=== PATIENT | female | born 1940 | race Caucasian/White ===

== ENCOUNTER 2017-01-03 08:02 | Outpatient (CLI) | payer MEDICARE | END 2017-01-03 08:03 | disposition home or self-care (01) | DX: Z13.820 Encounter for screening for osteoporosis (principal); M85.88 Other specified disorders of bone density and structure, other site; N95.8 Other specified menopausal and perimenopausal disorders ==

== ENCOUNTER 2017-04-17 10:43 | Outpatient (CLI) | payer MEDICARE ==
--- NOTE | 2017-04-17 14:24 | CT Report ---
LOW-DOSE CT CHEST FOR LUNG CANCER SCREENIN04/17/2017 CLINICAL INDICATION: A 76-year-old, 49-ecoz-ipry history of smoking, current smoker. TECHNIQUE: Axial CT images of the chest were obtained without intravenous contrast, using low-dose s creening technique. In accordance with CT protocol optimization, one or more of the following dose reduction techniques w ere utilized for this exam: automated exposure control, adjustment of mA and/or KV based on patient size, or use of iterative reconstructive technique. FINDINGS: The heart and great vessels demonstrate moderate atherosclerotic calcifications. Incident al note is made of an aberrant right subclavian artery, a normal variant. The lungs demonstrate emph ysema and bronchiectasis. There is a 4-mm nodule in the superolateral right middle lobe (axial image 154), and a 4-mm nodule in the right posterolateral lower lobe (axial image 244). No effusion or pn eumothorax is present. Osseous structures demonstrate degenerative changes. Limited evaluation of u pper abdominal structures is unremarkable. IMPRESSION: BENIGN FINDINGS. RECOMMENDATION: Continue annual screening with low-dose CT in 12 months. LUNG-RADS CATEGORY 2 - BENIGN APPEARANCE. JOB #: [id number] EXT JOB #:[id number]
== END 2017-04-17 10:44 | disposition home or self-care (01) ==
LOC: DI 10:43
PROVIDERS: ATTEND Internal Medicine
DX: Z12.2 Encounter for screening for malignant neoplasm of respiratory organs (principal); F17.210 Nicotine dependence, cigarettes, uncomplicated

== ENCOUNTER 2019-07-22 12:27 | Emergency (ER) | payer MEDICARE ==
[2019-07-22 13:19] LABS: BASOPHILS # (AUTO) 0.1 10^3/uL (0.0-0.1); BASOPHILS % (AUTO) 0.7 %; EOSINOPHILS # (AUTO) 0.1 10^3/uL (0.0-0.7); EOSINOPHILS % (AUTO) 0.7 %; HGB - HEMOGLOBIN 14.6 g/dL (12.0-16.0); LYMPHOCYTES % (AUTO) 14.6 %; MEAN CORPUSCULAR HEMOGLOBIN 34.3 pg (27.0-31.0); MEAN CORPUSCULAR VOLUME 100.9 fL (81.0-99.0); MEAN PLATELET VOLUME 8.2 fL (7.9-10.8); MONOCYTES # (AUTO) 0.9 10^3/uL (0.0-1.0); MONOCYTES % (AUTO) 6.6 %; NEUTROPHILS # (AUTO) 10.1 10^3/uL (1.5-6.6); NEUTROPHILS % (AUTO) 73.3 %; PLT - PLATELET COUNT 336 10^3/uL (130-450); RED BLOOD COUNT 4.26 10^6/uL (4.20-5.40); RED CELL DISTRIBUTION WIDTH 14.4 % (12.0-15.0); WHITE BLOOD COUNT 13.7 x10^3/uL (4.8-10.8)
[2019-07-22 13:39] LABS: ALBUMIN/GLOBULIN RATIO 0.9 (1.0-2.2); BILIRUBIN,TOTAL 0.7 mg/dL (0.2-1.0); CALCIUM 11.1 mg/dL (8.5-10.3); CREATININE 0.8 mg/dL (0.4-1.0); TOTAL PROTEIN 8.6 g/dL (6.7-8.2)
[2019-07-22 14:06] LABS: DIFFERENTIAL COMMENT MANUAL=AUTO DIFF; PLATELET ESTIMATE, MANUAL NORMAL (130-450,000) (NORMAL); PLATELET MORPHOLOGY NORMAL APPEARANCE (NORMAL); RBC MORPHOLOGY (MULTIPLE) NORMAL APPEARANCE (NORMAL)
[2019-07-22 15:00] LABS: BILIRUBIN,URINE NEGATIVE (NEGATIVE); GLUCOSE, URINE (UA) NEGATIVE (NEGATIVE); KETONES,URINE (UA) NEGATIVE (NEGATIVE); LEUKOCYTE ESTERASE, URINE TRACE (NEGATIVE); NITRITE,URINE NEGATIVE (NEGATIVE); OCCULT BLOOD,URINE NEGATIVE (NEGATIVE); PROTEIN,URINE NEGATIVE (NEGATIVE); UROBILINOGEN,URINE 0.2 (NORMAL) E.U./dL (NORMAL)
[2019-07-22 15:03] LABS: CLARITY,URINE HAZY (CLEAR)
[2019-07-22] MEDS ORDERED: IOVERSOL 320 100 ML VIAL IVP ONE ×2 (15:12→15:49)
[2019-07-22 15:27] LABS: BACTERIA,URINE Many /HPF (None Seen); RBC,URINE 0-5 /HPF (0-5); SQUAMOUS EPITHELIAL CELL,UR FEW Squamous (<= Few)
--- NOTE | 2019-07-22 16:17 | CT Report ---
Reason: RLQ pain tenderness x 1 week Procedure Date: 07/22/2019 Accession Number: [id number] / [id number] Procedure: CT - Abdomen/Pelvis W CPT Code: FULL RESULT: EXAM: CT ABDOMEN AND PELVIS EXAM DATE: 07/22/2019 03:46 PM. CLINICAL HISTORY: RLQ pain tenderness x 1 week. COMPARISONS: None. TECHNIQUE: Routine helical CT imaging was performed through the abdomen and pelvis. IV contrast: 100 cc Optiray 320. Enteric contrast: None. Reconstructions: Coronal and sagittal. In accordance with CT protocol optimization, one or more of the following dose reduction techniques were utilized for this exam: automated exposure control, adjustment of mA and/or KV based on patient size, or use of iterative reconstructive technique. FINDINGS: Lung Bases: Patchy peribronchovascular tree-in-bud opacities along with foci of consolidation seen at the bilateral pulmonary bases is worrisome for aspiration or pneumonia. No pleural effusions. Liver: Few tiny subcentimeter hypoattenuating liver lesions are indeterminate, possibly small cysts or hemangiomas. No enhancing liver masses. Hepatic and portal veins are patent. Gallbladder/Bile Ducts: Sludg is seen in the gallbladder. No definite radiopaque gallstones. No pericholecystic fluid or biliary dilation. Spleen: Scattered small splenic calcifications reflect sequelae of remote granulomatous infection. No splenic masses or splenomegaly. Pancreas: Normal. Adrenal Glands: Normal. Kidneys: Normal. No masses or hydronephrosis. Peritoneal Cavity/Bowel: Unremarkable stomach. Normal caliber small bowel loops without signs of wall thickening or hyperemia. No enlargement of peritoneal or retroperitoneal lymph nodes are seen. No intra-abdominal collections. Appendix is possibly visualized (3/56) and appears within normal limits. Gas and stool seen throughout the colon and the rectum. Pelvic Organs: Unremarkable urinary bladder for degree of distention. Prominent parametrial veins are noted. Uterus otherwise unremarkable. Ovaries not definitively seen by CT. No adnexal masses. No enlarged pelvic or inguinal lymph nodes. Vasculature: Severe atherosclerotic calcifications. No aneurysms. Bones: Osteopenia. Degenerative changes in the spine. No focal suspicious osseous lesions. Other: None. IMPRESSION: 1. Bibasilar pulmonary opacities are worrisome for aspiration or pneumonia. 2. No acute abnormality seen in the abdomen or pelvis. 3. Gas and stool seen throughout the colon and the rectum may reflect underlying constipation. 4. Prominent uterine and parametrial veins bilaterally could reflect underlying chronic pelvic congestion syndrome. RADIA
[2019-07-22] MEDS ORDERED: cefTRIAXone 1 GM in SODIUM CHLORIDE 0.9% MINIBAG 100 ML IV STA (16:19)
[2019-07-22] MEDS ORDERED: POTASSIUM CHLORIDE 20 MEQ TABLET PO STA (16:29)
[2019-07-22] MEDS ORDERED: POTASSIUM CHLOR 20 MEQ/100 ML 20 MEQ/100 ML BAG IV ONE (16:29)
--- NOTE | 2019-07-22 16:30 | ED Physician Documentation ---
PD HPI ABD PAIN - Stated complaint Stated Complaint: SIDE PX - Chief complaint Chief Complaint: Abd Pain - History obtained from History obtained from: Patient, Family - History of Present Illness Timing - onset: How many weeks ago (1) Timing - duration: Weeks (1) Timing - details: Gradual onset, Intermittant Severity Comments: mild Quality: Aching Location: RLQ Radiation: Other (no radiation) Improved by: Other (currently is asymptomatic) Worsened by: Palpation Associated symptoms: Other (denies fever, nausea, vomiting, dysuria, hematuria, or urinary frequency, denies diarrha or constipation, denies chest pain or sob) Similar symptoms before: Has not had sx before Recently seen: Clinic (in clinic they sent her to the ED for CT scan to evaluate for appendicitis) - Treatment prior to arrival Treatment prior to arrival: none Review of Systems Ten Systems: 10 systems reviewed and negative Constitutional: reports: Reviewed and negative Cardiac: reports: Reviewed and negative Respiratory: reports: Reviewed and negative GI: reports: Abdominal Pain : reports: Reviewed and negative Skin: reports: Reviewed and negative Musculoskeletal: reports: Reviewed and negative Neurologic: reports: Reviewed and negative Immunocompromised: reports: Reviewed and negative PD PAST MEDICAL HISTORY - Past Medical History Past Medical History: Yes Cardiovascular: High cholesterol Respiratory: None Neuro: None Endocrine/Autoimmune: None GI: Hemorrhoids [employer] OPERATOR: None : Frequency HEENT: None Psych: None Musculoskeletal: None Derm: None - Past Surgical History Past Surgical History: Yes /[employer]TER OPERATOR: Tubal ligation - Present Medications Home Medications: Ambulatory Orders Medication Instructions Recorded Confirmed Ezetimibe [Zetia] 10 mg PO DAILY 04/21/16 04/21/16 Levothyroxine Sodium 137 mcg PO DAILY 04/21/16 04/21/16 Triamterene [Dyrenium] 50 mg PO DAILY 04/21/16 04/21/16 Cephalexin [Keflex] 500 mg PO Q6H #28 capsule 07/22/19 - Allergies Allergies/Adverse Reactions: Allergies Allergy/AdvReac Type Severity Reaction Status Date / Time alcohol Allergy Edema Verified 07/22/19 12:34 - Social History Does the pt smoke?: Yes Smoking Status: Current every day smoker Does the pt drink ETOH?: No Does the pt have substance abuse?: No - Immunizations Immunizations are current?: Yes - POLST Patient has POLST: No PD ED PE NORMAL - Vitals Vital signs reviewed: Yes - General General: Alert and oriented X 3, No acute distress, Well developed/nourished - HEENT HEENT: Atraumatic - Neck Neck: Supple, no meningeal sign - Cardiac Cardiac: RRR - Respiratory Respiratory: No respiratory distress - Abdomen Abdomen: Soft, Non distended, Other (mild suprapubic and RLQ tenderness, no guarding or rebound ) - Female Female : Deferred - Rectal Rectal: Deferred - Back Back: No CVA TTP - Derm Derm: Normal color, Warm and dry, No rash - Extremities Extremities: No deformity, No tenderness to palpate, Normal ROM s pain, No edema, No calf tenderness / cord - Neuro Neuro: Alert and oriented X 3 Eye Opening: Spontaneous Motor: Obeys Commands Verbal: Oriented GCS Score: 15 - Psych Psych: Normal mood, Normal affect Results - Vitals Vitals: Vital Signs - 24 hr 07/22/19 07/22/19 07/22/19 12:35 14:51 16:47 Temperature 36.4 C L Heart Rate 102 H 84 82 Respiratory 16 18 16 Rate Blood Pressure 120/52 L 118/70 120/70 O2 Saturation 97 95 98 07/22/19 17:55 Temperature Heart Rate 88 Respiratory 20 Rate Blood Pressure 117/71 O2 Saturation 97 Oxygen O2 Source Room air - Labs Labs: Laboratory Tests 07/22/19 07/22/19 07/22/19 13:05 13:05 14:55 WBC 13.7 H RBC 4.26 Hgb 14.6 Hct 43.0 MCV 100.9 H MCH 34.3 H MCHC 34.0 RDW 14.4 Plt Count 336 MPV 8.2 Neut # (Auto) 10.1 H Lymph # (Auto) 2.0 [place] # (Auto) 0.9 Eos # (Auto) 0.1 Baso # (Auto) 0.1 Absolute Nucleated RBC 0.00 Band Neuts % (Manual) Not Reportable Abnorm Lymph % (Manual) Not Reportable Nucleated RBC % 0.0 Neutrophils # (Manual) Not Reportable Lymphocytes # (Manual) Not Reportable Monocytes # (Manual) Not Reportable Eosinophils # (Manual) Not Reportable Basophils # (Manual) Not Reportable Differential Comment MANUAL=AUTO DIFF Manual Slide Review Indicated Platelet Estimate NORMAL (130-450,000) Platelet Morphology NORMAL APPEARANCE RBC Morph Micro Appear NORMAL APPEARANCE Sodium 136 Potassium 2.8 L Chloride 93 L Carbon Dioxide 30 Anion Gap 13.0 BUN 21 H Creatinine 0.8 Estimated GFR (MDRD) 70 L Glucose 148 H Calcium 11.1 H Total Bilirubin 0.7 AST 32 ALT 28 Alkaline Phosphatase 69 Total Protein 8.6 H Albumin 4.0 Globulin 4.6 H Albumin/Globulin Ratio 0.9 L Lipase 49 Urine Color YELLOW Urine Clarity HAZY Urine pH 7.0 Ur Specific Guy 1.010 Urine Protein NEGATIVE Urine Glucose (UA) NEGATIVE Urine Ketones NEGATIVE Urine Occult Blood NEGATIVE Urine Nitrite NEGATIVE Urine Bilirubin NEGATIVE Urine Urobilinogen 0.2 (NORMAL) Ur Leukocyte Esterase TRACE H Urine RBC 0-5 Urine WBC 11-25 H Ur Squamous Epith Cells FEW Squamous Urine Bacteria Many H Ur Microscopic Review INDICATED Urine Culture Comments INDICATED - Rads (name of study) CT abd/pelvis Radiology: Final report received, See rad report PD MEDICAL DECISION MAKING - ED course Complexity details: reviewed results, re-evaluated patient, considered differential, d/w patient, d/w family ED course: ddx- UTI, cystitis, appendicitis, malignancy, hernia 78 y/o F with a week of lower abdominal pain, currently denies pain but mild tenderness in RLQ and suprapubic area. She has a leukocytosis thus obtained CT to evaluate for appendicitis. Her UA is suggestive of a possible UTI. Her CT is negative for appendicitis but is suggestive of a possible PNA. I discussed this with the patient and her , she has no respiratory symptoms, chest pain or cough. I doubt this is a PNA. CT also read as pelvic congestion which is a possible etiology of her symptoms. She is hypokalemic and this was repleted in the ED with oral and IV potassium. I advised the pt and her to f/u wtih her PCP to check a repeat potassium and recheck her symptoms and in the meantime advised them to increase her oral potassium in her diet. Pt and were given return precautions in case of worsening pain or new concerning symptoms. Departure - Departure Disposition: 01 Home, Self Care Clinical Impression: Hypokalemia UTI (urinary tract infection) Qualifiers: Urinary tract infection type: acute cystitis Hematuria presence: without hematuria Qualified Code(s): N30.00 - Acute cystitis without hematuria Condition: Stable Record reviewed to determine appropriate education?: Yes Instructions: Hypokalemia Dc, ED UTI Cystitis Female Follow-Up: Lang Woodard MD [Primary Care Provider] - Within 1 week (recheck your symptoms ) Prescriptions: Cephalexin [Keflex] 500 mg PO Q6H #28 capsule Discharge Date/Time: 07/22/19 18:00
[2019-07-22 17:56] VITALS: BP 117/71
== END 2019-07-22 18:00 | disposition home or self-care (01) ==
LOC: ED 12:27
DX: N30.00 Acute cystitis without hematuria (principal); E87.6 Hypokalemia; F17.200 Nicotine dependence, unspecified, uncomplicated
CPT/HCPCS: 36415; 74177; 80053; 81001; 83690; 85025; 87086; 96365; 96368; 99284; A9270; Q9967; 81003

== ENCOUNTER 2021-02-24 10:43 | Outpatient (CLI) | payer MEDICARE, OTHER ==
--- NOTE | 2021-02-24 11:45 | XRAY Report ---
PROCEDURE: Chest 2 View X-Ray INDICATIONS: OTHER CIRCULATORY AND RESPIRATORY SYSTEM SYMPTOMS TECHNIQUE: 2 view(s) of the chest. COMPARISON: None. FINDINGS: Surgical changes and devices: None. Lungs and pleura: No pleural effusions or pneumothorax. Mild diffuse basilar predominant reticulonod ular pulmonary opacity.. Mediastinum: Mediastinal contours are normal. Heart size is normal. Bones and chest wall: No suspicious bony abnormalities. Soft tissues appear unremarkable. IMPRESSION: Mild atypical pneumonia. Reviewed by: Tanya Londono MD on 02/24/2021 11:44 AM PDT Approved by: Tanya Londono MD on 02/24/2021 11:44 AM PDT Station ID: [id number]
== END 2021-02-24 10:44 | disposition home or self-care (01) ==
LOC: DI 10:43
PROVIDERS: ATTEND Internal Medicine
DX: J18.9 Pneumonia, unspecified organism (principal)

== ENCOUNTER 2021-02-26 09:45 | Outpatient (CLI) | payer MEDICARE, OTHER ==
--- NOTE | 2021-02-26 10:55 | CT Report ---
PROCEDURE: CHEST WO INDICATIONS: ABN FINDING ON CXR TECHNIQUE: Noncontrast 5 mm thick sections acquired from the pulmonary apices to the posterior costophrenic angl es. 7 mm thick coronal and sagittal MIP reformats were then acquired. For radiation dose reduction, the following was used: automated exposure control, adjustment of mA and/or kV according to patient size. COMPARISON: Plain films dated 02/24/2021. CT examination dated 04/17/2017. FINDINGS: Image quality: Excellent. Lungs and pleura: No acute air space opacities. 3 mm diameter nodule within the right upper lobe ant eroinferiorly adjacent to the minor fissure (series 4 image 171) is unchanged. 3 mm nodule within the right middle lobe medial segment anteriorly (series 4 image 202) is present, new since the prior exa mination. There is a new, ovoid nodule within the left lower lobe anteriorly measuring roughly 5 mm ( series 4 image 199). No pleural effusions or pneumothorax. Central and peripheral airways are patent and normal in caliber. Mediastinum: Heart size is normal. There is mild calcification of the coronary vasculature. No peric ardial effusion. No mediastinal adenopathy by size criteria. Thoracic aorta and central pulmonary a rteries are normal in size. Right subclavian artery arises from the distal aortic arch and is retroe sophageal, as before. Esophagus is normal in caliber. No hiatal hernia. Bones and chest wall: No suspicious bony lesions. No vertebral body compression fractures. No axil esmer or supraclavicular adenopathy by size criteria. The thyroid is normal in size and there are no incidental findings. Abdomen: Visualized upper abdominal solid organs and bowel loops appear normal in the absence of con trast. IMPRESSION: 1. Bilateral pulmonary nodules as described above, including new 3 mm right middle lobe and new 5 mm left lower lobe pulmonary nodules. Lung RADS 3. Follow-up six-month low-dose CT is recommended for fu rther assessment. 2. Coronary artery disease. 3. Aberrant origin of right subclavian artery. This has been associated with dysphagia. CLINICAL RECOMMENDATION STATEMENTS: In patients <35 years with an ITN detected on CT, MRI, or extrathyroidal ultrasound, the Committee re commends further evaluation with dedicated thyroid ultrasound if the nodule is ?1 cm and has no suspi cious imaging features, and if the patient has normal life expectancy. In patients ?35 years with an ITN detected on CT, MRI, or extrathyroidal ultrasound, the Committee re commends further evaluation with dedicated thyroid ultrasound if the nodule is ?1.5 cm and has no margarito picious imaging features, and if the patient has normal life expectancy. (ACR, 2014) Reviewed by: Tanya Londono MD on 02/26/2021 10:53 AM PDT Approved by: Tanya Londono MD on 02/26/2021 10:53 AM PDT Station ID: [id number]
== END 2021-02-26 09:46 | disposition home or self-care (01) ==
LOC: DI 09:45
PROVIDERS: ATTEND Internal Medicine
DX: R91.8 Other nonspecific abnormal finding of lung field (principal); I25.10 Atherosclerotic heart disease of native coronary artery without angina pectoris; Q25.48 Anomalous origin of subclavian artery

== ENCOUNTER 2021-11-23 11:17 | Outpatient (CLI) | payer MEDICARE, OTHER ==
[2021-11-23] MEDS ORDERED: IOVERSOL 320 100 ML VIAL IVP ONE ×2 (11:28→15:38)
[2021-11-23 12:15] LABS: CALCIUM 9.2 mg/dL (8.5-10.3); CREATININE 0.8 mg/dL (0.4-1.0)
--- NOTE | 2021-11-23 18:03 | CT Report ---
PROCEDURE: CHEST W INDICATIONS: MULTIPLE LUNG NODULES CONTRAST: IV CONTRAST: Optiray 320 ml: 100 PO CONTRAST: *NO PO CONTRAST TECHNIQUE: After the administration of intravenous contrast, 1 mm axial images were acquired from the pulmonary apices through the posterior costophrenic angles. Axial 5 mm soft tissue kernel reconstructions were performed as well as 8 mm axial MIP and coronal and sagittal 5 mm reformations. For radiation dose reduction, the following was used: automated exposure control, adjustment of mA and/or kV according to patient size. COMPARISON: 02/26/2021 FINDINGS: Image quality: Excellent. Lungs and pleura: The previously described tiny pulmonary nodules are not definitely seen on the cur rent study. No new pulmonary nodules are seen. Centrilobular emphysematous changes are seen, which are more prominent at the lung apices than at the lung bases. No acute air space opacities. No pleural effusions or pneumothorax. Central and peripheral airways are patent and normal in caliber. Mediastinum: Heart size is normal. At least moderate coronary artery calcification can be seen. No pericardial effusion. No mediastinal or hilar adenopathy by size criteria. Thoracic aorta and centr al pulmonary arteries are normal in size. An aberrant right subclavian artery is again seen. Atherosc lerotic calcification is seen. Esophagus is normal in caliber. No hiatal hernia. Bones and chest wall: No suspicious bony lesions. No vertebral body compression fractures. No axil esmer or supraclavicular adenopathy by size criteria. The thyroid is normal in size and there are no incidental findings.. Abdomen: Visualized upper abdominal solid organs appear normal. Upper abdominal bowel loops are nor mal in caliber. IMPRESSION: The previously seen tiny pulmonary nodules are definitely seen on the current study. Incidental note is made of: Aberrant right subclavian artery At least moderate coronary artery calcification Reviewed by: Abhijeet Adams MD on 11/23/2021 5:02 PM [place] Approved by: Abhijeet Adams MD on 11/23/2021 5:02 PM [facility] Station ID: [id number]
== END 2021-11-23 11:18 | disposition home or self-care (01) ==
LOC: DI 11:17
PROVIDERS: ATTEND Nurse Practitioner Family
DX: R91.8 Other nonspecific abnormal finding of lung field (principal); Z79.899 Other long term (current) drug therapy
CPT/HCPCS: 36415; 71260; 80048; Q9967

== ENCOUNTER 2022-02-25 08:00 | Outpatient (CLI) | payer MEDICARE, OTHER ==
[2022-02-25 15:28] LABS: BILIRUBIN,URINE NEGATIVE (NEGATIVE); GLUCOSE, URINE (UA) NEGATIVE (NEGATIVE); KETONES,URINE (UA) NEGATIVE (NEGATIVE); LEUKOCYTE ESTERASE, URINE LARGE (NEGATIVE); NITRITE,URINE NEGATIVE (NEGATIVE); OCCULT BLOOD,URINE TRACE-INTA (NEGATIVE); PH,URINE 6.5 PH (5.0-7.5); PROTEIN,URINE TRACE mg/dL (NEGATIVE); UROBILINOGEN,URINE 0.2 (NORMAL) E.U./dL (NORMAL)
[2022-02-25 15:34] LABS: CLARITY,URINE CLOUDY (CLEAR)
[2022-02-25 15:57] LABS: BACTERIA,URINE Few /HPF (None Seen); RBC,URINE 0-5 /HPF (0-5); SQUAMOUS EPITHELIAL CELL,UR RARE Squamous (<= Few); WBC,URINE >25 /HPF (0-5)
== END 2022-02-25 23:59 | disposition home or self-care (01) ==
LOC: LAB.S 08:00
PROVIDERS: ATTEND Emergency Medicine
DX: N39.0 Urinary tract infection, site not specified (principal)
CPT/HCPCS: 81001; 87086; 87181